=== PATIENT | female | born 2000 | race Caucasian/White ===

== ENCOUNTER 2022-10-08 16:25 | Emergency (ER) | payer OTHER, SELFPAY ==
[2022-10-08] MEDS ORDERED: Ketorolac Tromethamine 30 MG/ML VIAL ONE (16:54)
[2022-10-08] MEDS ORDERED: Metoclopramide HCl 10 MG/2 ML VIAL ONE (16:54)
[2022-10-08] MEDS ORDERED: diphenhydrAMINE 50 MG/ML VIAL ONE (16:54)
== END 2022-10-08 18:30 | disposition home or self-care (01) ==
LOC: CSHERS 16:25
DX: R51.9 Headache, unspecified (principal)
CPT/HCPCS: 96361; 96374; 96375; J1200; J1885; J2765